=== PATIENT | female | born 1955 | race Caucasian/White ===

== ENCOUNTER 2016-06-30 09:55 | Emergency (ER) | payer SELFPAY ==
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
[2016-06-30 13:05] VITALS: BP 142/87
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
== END 2016-06-30 13:04 | disposition home or self-care (01) ==
LOC: ED 09:55
DX: S16.1XXA Strain of muscle, fascia and tendon at neck level, initial encounter (principal); V43.52XA Car driver injured in collision with other type car in traffic accident, initial encounter; Y92.9 Unspecified place or not applicable; M50.321 Other cervical disc degeneration at C4-C5 level; M50.323 Other cervical disc degeneration at C6-C7 level
CPT/HCPCS: 71020; 72040; 99282

== ENCOUNTER 2018-11-28 13:19 | Emergency (ER) | payer BC ==
[2018-11-28] MEDS ORDERED: Meclizine TAB* 12.5 MG PO ONE (16:29)
[2018-11-28] MEDS ORDERED: NS 0.9% 1000 ML** 1,000 ML IV ONE (16:29)
--- NOTE | 2018-11-28 16:34 | ED ---
Dizziness - HPI Summary HPI Summary: 63 year old F presenting to [facility] complains of dizziness described as light headed since this morning. The patient rates the pain 3/10 in severity. Symptoms aggravated by leaning forward, turning head side to side, closing eyes. Symptoms alleviated by nothing. Patient reports headache rated 3/10 in severity, neck pain, and mild chest tightness. Patient denies palpitations. Patient has had these symptoms before but never dx vertigo. She denies recent common colds and recent upper respiratory infections. - History Of Current Complaint Chief Complaint: EDDizziness Stated Complaint: DIZZY Time Seen by Provider: 11/28/18 16:29 Hx Obtained From: Patient Onset/Duration: Still Present Timing: Constant Character: Lightheaded Aggravating Factor(s): Other - leaning forward, turning head side to side, closing eyes Alleviating Factor(s): Nothing Associated Signs And Symptoms: Positive: Other: - headache rated 3/10 in severity, neck pain, and mild chest tightness - Allergies/Home Medications Allergies/Adverse Reactions: Allergies Allergy/AdvReac Type Severity Reaction Status Date / Time No Known Allergies Allergy Verified 11/28/18 13:36 Home Medications: Home Medications Acetaminophen TAB* [Tylenol TAB*] 325 mg PO Q4H PRN 11/28/18 [History Confirmed 11/28/18] Multivitamins/Minerals TAB* [Theragran/minerals TAB*] 1 tab PO DAILY 11/28/18 [ History Confirmed 11/28/18] PMH/Surg Hx/FS Hx/Imm Hx Musculoskeletal History: Denies: Hx Osteoporosis Sensory History: Reports: Hx Contacts or Glasses Opthamlomology History: Reports: Hx Contacts or Glasses - Cancer History Hx Chemotherapy: No Hx Radiation Therapy: No - Surgical History Surgery Procedure, Year, and Place: tonsillectomy - Immunization History Immunizations Up to Date: Yes Infectious Disease History: No Infectious Disease History: Denies: Traveled Outside the [place] in Last 30 Days - Family History Known Family History: Positive: Other - mother with dementia - Social History Alcohol Use: Daily Alcohol Amount: wine Hx Substance Use: No Substance Use Type: Reports: None Hx Tobacco Use: No Smoking Status (MU): Never Smoked Tobacco Review of Systems Positive: Other - chest tightness. Negative: Palpitations Positive: Other - neck pain Neurological: Other - Dizziness Positive: Headache All Other Systems Reviewed And Are Negative: Yes Physical Exam - Summary Physical Exam Summary: VITAL SIGNS: Reviewed. GENERAL: Patient is a well-developed and nourished MALE who is lying comfortable in the stretcher. Patient is not in any acute respiratory distress. HEAD AND FACE: No signs of trauma. No ecchymosis, hematomas or skull depressions. No sinus tenderness. EYES: PERRLA, EOMI x 2, No injected conjunctiva, no nystagmus. EARS: Hearing grossly intact. Ear canals and tympanic membranes are within normal limits. MOUTH: Oropharynx within normal limits. NECK: Supple, trachea is midline, no adenopathy, no JVD, no carotid bruit, no c- spine tenderness, neck with full ROM. CHEST: Symmetric, no tenderness at palpation. LUNGS: Clear to auscultation bilaterally. No wheezing or crackles. CVS: Regular rate and rhythm, S1 and S2 present, no murmurs or gallops appreciated. ABDOMEN: Soft, non-tender. No signs of distention. No rebound, no guarding, and no masses palpated. Bowel sounds are normal. EXTREMITIES: FROM in all major joints, no edema, no cyanosis or clubbing. NEURO: Alert and oriented x 3. No acute neurological deficits. Speech is normal and follows commands. SKIN: Dry and warm. GCS: 15 Triage Information Reviewed: Yes Vital Signs On Initial Exam: Initial Vitals Temp Pulse Resp BP Pulse Ox 98.1 F 69 16 149/107 99 11/28/18 13:32 11/28/18 13:32 11/28/18 13:32 11/28/18 13:32 11/28/18 13:32 Vital Signs Reviewed: Yes Diagnostics - Vital Signs Vital Signs Temp Pulse Resp BP Pulse Ox 11/28/18 15:10 97.9 F 71 16 141/97 98 11/28/18 13:32 98.1 F 69 16 149/107 99 - Laboratory Result Diagrams: 11/28/18 16:41 11/28/18 16:41 Lab Statement: Any lab studies that have been ordered have been reviewed, and results considered in the medical decision making process. - Radiology Chest x-ray Radiology Interpretation Completed By: Radiologist Summary of Radiographic Findings: Stigmata of potential obstructive lung disease. No acute pulmonary or cardiac process evident. ED physician has reviewed this report. - CT Brain CT Interpretation Completed By: Radiologist Summary of CT Findings: Negative unenhanced head CT. ED physician has reviewed this report. - EKG 1607 Cardiac Rate: NL - 61 BPM EKG Rhythm: Sinus Rhythm Summary of EKG Findings: Sinus rhythm [address] elevations. Inverted T waves in lead III. Q wave in lead III. Re-Evaluation - Re-Evaluation First Eval Re-Evaluation Time: 18:08 Comment: patient feels better after medication. she is ready to go home Dizzy Course/Dx - Course Assessment/Plan: 63 year old F presenting to [facility] complains of dizziness described as light headed since this morning. The patient rates the pain 3/10 in severity. Symptoms aggravated by leaning forward, turning head side to side, closing eyes. Symptoms alleviated by nothing. Patient reports headache rated 3/ 10 in severity, neck pain, and mild chest tightness. Patient denies palpitations. Patient has had these symptoms before but never dx vertigo. She denies recent common colds and recent upper respiratory infections. Blood work without a significant abnormality. Troponin is 0.0. Urinalysis is negative for UTI. Chest x-ray impression: Stigmata for potential obstructive lung disease. No acute pulmonary or cardiac process evident. Head CT impression: Negative for acute pathology. In the ED course, the patient was given IV fluids and meclizine for dizziness. After these medications were given, the patients symptoms have improved. I believe that the patient has vertigo therefore the patient will be discharged home with a prescription for meclizine. Patient has a good, steady walk and no dizziness. Neurological exam before discharge is within normal limits. Patient will be discharged with follow-up PCP. - Diagnoses Provider Diagnoses: Vertigo Discharge - Sign-Out/Discharge Documenting (check all that apply): Patient Departure - Discharge Patient Received Moderate/Deep Sedation with Procedure: No - Discharge Plan Condition: Stable Disposition: HOME Prescriptions: Meclizine TAB* [Antivert 12.5 TAB*] 25 mg PO TID PRN #30 tab PRN Reason: Vertigo Patient Education Materials: Vertigo (ED) Referrals: Araceli Castillo PAYMENT PROCESSOR [Primary Care Provider] - 3 Days Additional Instructions: Follow up with your primary care provider in 3 days. Return to the Emergency Department for new or worsening symptoms. - Billing Disposition and Condition Condition: STABLE Disposition: Home - Attestation Statements Document Initiated by Scribe: Yes Documenting Scribe: Mattie Sumner Provider For Whom Chelsieibarlyn is Documenting (Include Credential): Larry Alfaro MD Scribe Attestation: I, Mattie Sumner, scribed for Larry Alfaro MD on 11/28/18 at 1904. Scribe Documentation Reviewed: Yes Provider Attestation: The documentation as recorded by the scribeMattie accurately reflects the service I personally performed and the decisions made by me, Larry Alfaro MD Status of Scribe Document: Viewed
[2018-11-28 16:50] LABS: ABS Basophils 0.1 10^3/ul (0-0.2); ABS Eosinophils 0.1 10^3/ul (0-0.6); ABS Lymphocytes 1.7 10^3/ul (1.0-4.8); ABS Monocytes 0.4 10^3/ul (0-0.8); ABS Neutrophils 4.2 10^3/ul (1.5-7.7); Hematocrit 42 % (35-47); Hemoglobin 14.3 g/dL (12.0-16.0); Lymphocyte % 26.4 %; Mean Corpuscular HGB Conc 34 g/dL (31-36); Mean Corpuscular Hemoglobin 32 pg (27-31); Mean Corpuscular Volume 92 fL (80-97); Mean Platelet Volume 8.2 fL (7.4-10.4); Nucleated Red Blood Cells % 0.1; Platelet Count 237 10^3/uL (150-450); Red Blood Count 4.52 10^6 /uL (3.70-4.87); Red Cell Distribution Width 13 % (10-15); White Blood Count 6.4 10^3/uL (3.5-10.8)
[2018-11-28 17:06] LABS: ALT 15 U/L (7-52); AST 17 U/L (13-39); Albumin 4.4 g/dL (3.2-5.2); Albumin/Globulin Ratio 1.7 (1-3); Alkaline Phosphatase 55 U/L (34-104); Anion Gap 5 mmol/L (2-11); BUN/Creatinine Ratio 21.5 (8-20); Blood Urea Nitrogen 17 mg/dL (6-24); C Reactive Protein < 1.00 mg/L (<8.01); CO2 Carbon Dioxide 26 mmol/L (22-32); Calcium 9.7 mg/dL (8.6-10.3); Chloride 106 mmol/L (101-111); Creatine Kinase 127 U/L (10-223); EGFR African American 88.9 (>60); EGFR Non-African American 73.5 (>60); Globulin 2.6 g/dL (2-4); Glucose 101 mg/dL (70-100); Potassium 4.2 mmol/L (3.5-5.0); Sodium 137 mmol/L (135-145)
[2018-11-28 17:32] LABS: TSH (Thyroid Stimulating Horm) 2.78 mcIU/mL (0.34-5.60)
[2018-11-28 17:56] LABS: Urine Appearance Clear; Urine Bacteria Absent (Absent); Urine Bilirubin Negative (Negative); Urine Blood Negative (Negative); Urine Color Straw; Urine Glucose Negative (Negative); Urine Ketones Negative (Negative); Urine Nitrite Negative (Negative); Urine Protein Negative (Negative); Urine Red Blood Cell Trace(0-2/hpf) (Absent); Urine Specific Gravity 1.006 (1.010-1.030); Urine Urobilinogen Negative (Negative); Urine White Blood Cell Trace(0-5/hpf) (Absent)
[2018-11-28 18:41] VITALS: BP 146/77
== END 2018-11-28 18:41 | disposition home or self-care (01) ==
LOC: ED 13:19
DX: R42 Dizziness and giddiness (principal); R51 Headache; M54.2 Cervicalgia; R07.9 Chest pain, unspecified; Z79.899 Other long term (current) drug therapy
CPT/HCPCS: 36415; 70450; 71046; 80053; 81003; 81015; 82550; 83605; 83735; 83880; 84443; 84484; 85025; 86140; 87086; 93005; 96360; 96361; 99283; A9270-GY